=== PATIENT | female | born 1950 | race Caucasian/White ===

== ENCOUNTER 2017-06-13 15:50 | Day surgery (SDC) | payer OTHER ==
[~2017-06-13] VITALS: Ht 165.1 cm; Wt 88.2 kg
[2017-06-13 16:00] VITALS: BP 133/91; PULSE 101; RESP 19
[2017-06-13 16:13] VITALS: Ht 165.1 cm; Wt 88.2 kg
[2017-06-13] MEDS ORDERED: MIDAZOLAM 1 MG/ML 2 ML INJ ONE ×2 (16:16→16:17)
[2017-06-13] MEDS ORDERED: PROPOFOL 20 ML ONE (16:16)
[2017-06-13] MEDS ORDERED: LIDOCAINE 2% (SDV) 5 ML INJ ONE (16:16)
--- NOTE | 2017-06-13 16:54 | OPPN ---
Date/Time of Note Date/Time of Note DATE: 06/13/17 TIME: 16:52 Operative Report Preoperative Diagnosis Abdominal pain Chronic heartburn Chronic diarrhea Postoperative Diagnosis Hiatal hernia and gastroesophageal reflux disease Gastritis with erosions Small bowel biopsies were taken for histopathology Normal terminal ileum Random biopsies were taken to rule out microscopic colitis Internal hemorrhoids Operation/Procedure Performed Esophagogastroduodenoscopy and biopsy Colonoscopy and biopsy Surgeon see signature line assistant chief engineer None Anesthesia: MAC Estimated blood loss: none Transfusion Required none Specimen Small bowel biopsy Gastric mucosal biopsy Random colon biopsy Grafts/Implants none Complications none QASIM BAJWA MD Jun 13, 2017 16:54
[2017-06-13] MEDS ORDERED: OMEPRAZOLE PO (16:56)
[2017-06-13] MEDS ORDERED: PRAVASTATIN PO (16:56)
[2017-06-13] MEDS ORDERED: KLONOPIN PO (16:56)
[2017-06-13] MEDS ORDERED: COZAAR PO (16:56)
[2017-06-13 17:20] VITALS: BP 131/69; PULSE 87; RESP 18
--- NOTE | 2017-06-13 22:28 | GILP ---
DATE OF PROCEDURE: NAME OF PROCEDURES: 1. Esophagogastroduodenoscopy and biopsy. 2. Colonoscopy and biopsy. SURGEON: Qasim Willis MD PREOPERATIVE DIAGNOSES: 1. Abdominal pain. 2. Chronic heartburn. 3. Chronic diarrhea. POSTOPERATIVE DIAGNOSES: 1. Hiatal hernia and gastroesophageal reflux disease. 2. Gastritis with erosions. 3. Gastric mucosal biopsies were taken for Helicobacter pylori test. 4. Colonoscopy all the way to the cecum and into the terminal ileum. 5. Normal terminal ileum. 6. Random biopsies were taken to rule out microscopic colitis. 7. Internal hemorrhoids. INDICATION FOR THE PROCEDURE: Ms. Yina Javier is a 66-year-old female patient who had upper ab dominal pain and chronic heartburn, not responding to therapy. She also had chronic diarrhea. The procedures and possible complications were well explained to the patient, the patient understood and consented to the procedure. DESCRIPTION OF PROCEDURE: Under the influence of anesthesia, the gastroscope was carefully introduc ed into the esophagus and under direct vision, it was advanced to the stomach and through the pyloru s into the duodenal bulb and descending duodenum. FINDINGS: ESOPHAGUS: The patient had hiatal hernia and gastroesophageal reflux disease. STOMACH: The patient had gastritis with erosions. Gastric mucosal biopsies were taken for H. pylor i test. The small bowel was normal. Small bowel biopsies were taken for histopathology. The colonoscope was carefully introduced in the rectum and under direct vision, it was advanced all the way to the cecum and through the ileocecal valve into the terminal ileum. FINDINGS: The terminal ileum was normal. The colonic mucosa was normal. Random biopsies were take n to rule out microscopic colitis. The patient was noted to have internal hemorrhoids. She tolerated the procedures very well and there was no complication from the procedures. At the en d of the procedures, she was awake with stable vital signs and she was discharged home to the care o f her family. IMPRESSION: Please see postoperative diagnoses. PLAN: 1. Omeprazole 40 mg p.o. q.a.m. 2. Zantac 300 mg p.o. at bedtime. 3. Bentyl 10 mg p.o. t.i.d. p.r.n. for diarrhea. 4. Await histopathology reports. 5. Next screening colonoscopy in 10 years. Dictated By: QASIM PENG/JANICE Conf#: [id number] [facility]#: [id number]
== END 2017-06-13 18:22 | disposition home or self-care (01) ==
LOC: GIL 15:50
PROVIDERS: ATTEND Internal Medicine Gastroenterology
DX: R12 Heartburn (principal); K44.9 Diaphragmatic hernia without obstruction or gangrene; K21.9 Gastro-esophageal reflux disease without esophagitis; K29.70 Gastritis, unspecified, without bleeding; K64.8 Other hemorrhoids
CPT/HCPCS: 43239; 45380; 87081; 88305; 88313; J2250; Z7610

== ENCOUNTER 2018-10-02 06:26 | Day surgery (SDC) | payer OTHER ==
--- NOTE | 2018-10-01 13:07 | PREOPHP ---
DATE OF ADMISSION: 10/02/2018 HISTORY OF PRESENT ILLNESS: This 68-year-old patient is admitted for elective cataract surgery of th e left eye. The patient had previously had decreased vision in both eyes for the past 5 years' time and 2 months ago underwent cataract surgery of the right eye with excellent visual recovery. The pat ient's systemic history is positive for hypertension, sleep disorder, GERD and depression. CURRENT MEDICATIONS: Include: 1. Celexa. 2. Losartan. 3. Naproxen. 4. Pravastatin. 5. Flexeril. 6. Klonopin. 7. Prilosec. ALLERGIES: THERE ARE NO KNOWN ALLERGIES. PHYSICAL EXAMINATION: The visual acuity with best correction is 20/25 in the right eye and 20/80 in the left eye. Slit lamp examination reveals a posterior chamber intraocular lens in appropriate posi tion in the right eye and a moderate nuclear sclerotic and posterior subcapsular cataract in the left eye. Applanation tonometry is 21 mmHg. Examination of the retina is within normal limits. DIAGNOSIS: Nuclear sclerotic and posterior subcapsular cataract, left eye. PLAN: Cataract extraction with lens implant, left eye. The risks and alternatives to the surgery white ve been discussed with the patient as well as the hope for improvement of visual acuity leading to gr eater ability to perform activities of daily living. The patient understands this and agrees to proc eed with surgery. Dictated By: ЕЛЕНА CABALLERO/JANICE Conf#: [id number] DID#: [id number]
[~2018-10-02] VITALS: Ht 165.1 cm; Wt 87.9 kg
[2018-10-02] VITALS (7 sets, daily range): BP systolic 125–150; BP diastolic 65–81; PULSE 84–94; RESP 10–18; Ht 165.1 cm; Wt 87.9 kg
[~2018-10-02 06:26] MED LIST: CITA20TA11 PO; CYCL10TA7 PO; CYCLOPENTOLATE/PHENYLEPH 2 ML OPH LEFT EYE SCH; DICLOFENAC 0.1% 2.5 ML OPH LEFT EYE SCH; LOSA25TA12 PO; MOXIFLOXACIN 0.5% 3 ML OPH LEFT EYE SCH; OMEP20CA16 PO; PRAV40TA76 PO; SOD CHLORIDE 0.9% 1,000 ML IV SCH; TROPICAMIDE 1% 15 ML OPH LEFT EYE SCH; ZOLP5TAB PO
[2018-10-02] MEDS ORDERED: NAPR-688 PO (07:24)
[2018-10-02] MEDS ORDERED: CLON-429 PO (07:25)
[2018-10-02] MEDS ORDERED: EPHEDrine SULFATE 50 MG/5 ML SYG IV PRN (09:00)
[2018-10-02] MEDS ORDERED: DIPHENHYDRAMINE 50 MG INJ IV PRN (09:00)
[2018-10-02] MEDS ORDERED: OXYCODONE/ACETAMINOPHEN (5/325) TAB PO PRN (09:00)
[2018-10-02] MEDS ORDERED: hydrALAzine 20 MG INJ IV PRN (09:00)
[2018-10-02] MEDS ORDERED: FENTAnyl 50 MCG/ML VIAL IV PRN (09:00)
[2018-10-02] MEDS ORDERED: HYDROmorphONE 1 MG/5 ML IV SYRINGE IV PRN ×2 (09:00)
[2018-10-02] MEDS ORDERED: MEPERIDINE 25 MG INJ IV PRN (09:00)
[2018-10-02] MEDS ORDERED: ONDANSETRON 4 MG INJ IV PRN (09:00)
[2018-10-02] MEDS ORDERED: LABETALOL HCL 20MG INJ IV PRN (09:00)
--- NOTE | 2018-10-02 09:00 | PREAC ---
Date/Time of Note Date/Time of Note DATE: 10/02/18 TIME: 08:59 Anesthesia Eval and Record Evaluation Time Pre-Procedure Interview DATE: 10/02/18 TIME: 08:59 Age 68 Sex female NPO: 8 hrs Preoperative diagnosis left cataract Planned procedure left cataract extraction, intraocular lens implant Past Medical History Past Medical History: Includes Cardio: HTN, Dyslipidemia GI: GERD Psych: Depression, Anxiety Surgery & Anesthesia Issues No known issue Meds Anticoagulation: No Beta Gerda within 24 hr: No Reason Beta Gerda not given: Pt. not on B-Gerda Reported Medications Clonazepam* (Klonopin*) 0.5 Mg Tab, 0.25 MG PO DAILY PRN for ANXIETY, TAB 10/02/18 Naproxen* (Naproxen*) 500 Mg Tablet, 500 MG PO BID PRN for PAIN AND/OR INFLAMMATION, TAB 10/02/18 Omeprazole* (Omeprazole*) 20 Mg Capsule.dr, 20 MG PO DAILY, #30 CAP 08/07/18 Zolpidem Tartrate* (Ambien*) 5 Mg Tablet, 5 MG PO QHS PRN for INSOMNIA, #30 TAB 08/07/18 Cyclobenzaprine Hcl* (Cyclobenzaprine Hcl*) 10 Mg Tablet, 10 MG PO QHS PRN for MUSCLE SPASMS, #60 TAB 08/07/18 Losartan Potassium* (Losartan Potassium*) 25 Mg Tablet, 25 MG PO DAILY, TAB 08/07/18 Citalopram Hydrobromide* (Celexa*) 20 Mg Tablet, 20 MG PO DAILY, #30 TAB 08/07/18 Pravastatin Sodium* (Pravastatin Sodium*) 40 Mg Tablet, 40 MG PO HS, TAB 08/07/18 Current Medications Diclofenac Sodium (Voltaren 0.1%) 1 drop Q5 MIN X 3 LEFT EYE Last administered on 10/02/18at 07:29; Admin Dose 1 DROP; Start 10/02/18 at 06:00 Tropicamide (Mydriacyl 1%) 1 drop Q5 MIN X3 LEFT EYE Last administered on 10/02/18at 07:28; Admin Dose 1 DROP; Start 10/02/18 at 06:00 Moxifloxacin HCl (Vigamox) 1 drop Q5 MIN X 3 LEFT EYE Last administered on 10/02/18at 07:28; Admin Dose 1 DROP; Start 10/02/18 at 06:00 Cyclopentolate/ Phenylephrine (Cyclomydril Oph 2 ml) 1 drop Q5 MIN X 3 LEFT EYE Last administered on 10/02/18at 07:29; Admin Dose 1 DROP; Start 10/02/18 at 06:00 Sodium Chloride 1,000 ml @ 25 mls/hr Q24H IV Last administered on 10/02/18at 07:28; Admin Dose 25 MLS/HR; Start 10/02/18 at 06:00 Meds reviewed: Yes Allergies Coded Allergies: No Known Allergy (Unverified , 10/02/18) Allergies Reviewed: Yes Labs/Studies Labs Reviewed: Reviewed by anesthesiologist test: N/A Pre-procedure Exam Airway: Adequate mouth opening, Adequate thyromental dist Mallampati: Mallampati II Teeth: Normal Lung: Normal Heart: Normal ASA Physical Status ASA physical status: 2 Emergency: None Planned Anesthetic General/MAC: Mask Pre-operative Attestations Prior to commencing anesthesia and surgery, the patient was re-evaluated, there was verification of: *The patient's identity *The results of appropriate recent lab work and preoperative vital signs *The above evaluation not changing prior to induction *Anesthetic plan, risk benefits, alternative and complications discussed with patient/family; questions answered; patient/family understands, accepts and wishes to proceed. NIMCO BOB MD Oct 02, 2018 09:00
[2018-10-02] MEDS ORDERED: CARBACHOL 0.01% 1.5 ML OPH INJ ONE (09:34)
[2018-10-02] MEDS ORDERED: NA HYALURONATE/CHONDROITIN 0.5 ML SYG ONE (09:34)
[2018-10-02] MEDS ORDERED: CEFAZOLIN 1 GM INJ ONE (09:34)
[2018-10-02] MEDS ORDERED: LIDOCAINE 4% (MPF) 5 ML INJ ONE (09:34)
[2018-10-02] MEDS ORDERED: DEXAMETHASONE 4 MG/ML 1 ML INJ ONE (09:34)
[2018-10-02] MEDS ORDERED: FENTAnyl 50 MCG/ML VIAL ONE (09:48)
[2018-10-02] MEDS ORDERED: PROPOFOL 20 ML ONE (09:48)
[2018-10-02] MEDS ORDERED: MIDAZOLAM 1 MG/ML 2 ML INJ ONE (09:48)
--- NOTE | 2018-10-02 10:38 | SIPON ---
Date/Time of Note Date/Time of Note DATE: 10/02/18 TIME: 10:37 Operative Report Preoperative Diagnosis nuclear sclerotic & posterior subcapsular cataract os Postoperative Diagnosis same Operation/Procedure Performed cataract extraction with lens implant os Surgeon елена snyder life enrichment assistant none Anesthesia: MAC Estimated blood loss: none Transfusion Required none Specimen none Grafts/Implants posterior chamber lens implant Complications none ЕЛЕНА SNYDER MD Oct 02, 2018 10:38
--- NOTE | 2018-10-02 11:32 | OPR ---
DATE OF OPERATION: 10/02/2018 PREOPERATIVE DIAGNOSIS: Nuclear sclerotic and posterior subcapsular cataract, left eye. POSTOPERATIVE DIAGNOSIS: Nuclear sclerotic and posterior subcapsular cataract, left eye. OPERATION PERFORMED: Cataract extraction with lens implant, left eye. SURGEON: Елена Snyder M.D. ANESTHESIOLOGIST: Dr. Shi. ANESTHESIA: Local standby. PROCEDURE: The patient was brought to the operating room and placed on the table with an IV in place and the patient attached to an desk monitor. Oxygen was given via face mask. After some intravenous sedation was administered, local anesthesia was given using Xylocaine 2% with epinephrine, mixed with Marcaine 0.5%. This was given in a lid block and retrobulbar injection. The patient was then prepped and draped in the usual sterile manner. A wire lid speculum was inserted between the lids of the left eye. A Superblade was used to enter th e anterior chamber at the corneoscleral limbus at the 10:30 o'clock position. A separate incision wa s made using a 3.0-mm keratome which entered the corneoscleral junction at the 12 o'clock position. Through this 3-mm opening, an irrigating cystotome was introduced into the anterior chamber. The missy mber was filled with Viscoat and an anterior capsulotomy was performed. Balanced salt solution was t hen used for hydrodissection of the lens. A phacoemulsification handpiece was then brought into the field and introduced into the anterior chamber. The lens nucleus was emulsified using a deep groove and cracking the nucleus into quadrants. Following this, each quadrant was aspirated and emulsified at the pupillary margin. After this was completed, the irrigation/aspiration handpiece was brought to the field, introduced in to the posterior chamber, and the lens cortical material was removed. When this was completed, addit ional Viscoat was injected into the anterior and posterior chambers. Following removal of the lens nucleus, it was noted that there was a break in the posterior capsule, most likely due to sharp edges of a very brunescent nucleus as remnants were moving about in the post erior chamber during the phacoemulsification procedure. Some formed vitreous was present at the ante rior chamber wound and therefore, a limited anterior vitrectomy was performed. Following this, it wa s noted that there was no vitreous in the anterior chamber or at the lips of the wound and that there was sufficient capsular support. All lens cortical material was aspirated and then 18.0 diopter the posterior chamber intraocular lens ([employer] Model LI61AO) was inserted into the posterior chamber with the haptics placed anterior to the peripheral lens capsule. The lens centered well and remained stable. One 10-0 nylon suture was placed across the wound. Miostat was instilled to constrict the pupil. Pr ovisc was aspirated from the anterior chamber and then the suture was tied. The ends were cut short and the knot was buried. 0.5 mL of Ancef and 0.5 mL of dexamethasone were injected into the sub-Teno n space inferiorly. Speculum was removed. Ciprofloxacin drops placed on the eye, and the eye was pa tched. The patient then left the operating room in satisfactory condition. Dictated By: ЕЛЕНА CABALLERO/JANICE Conf#: [id number] DID#: [id number] CC: ЕЛЕНА SNYDER MD;*EndCC*
--- NOTE | 2018-10-02 14:22 | PAC ---
Date/Time of Note Date/Time of Note DATE: 10/02/18 TIME: 14:22 Post-Anesthesia Notes Post-Anesthesia Note Last documented vital signs Vital Signs Date Temp Pulse Resp B/P (MAP) Pulse Ox O2 O2 Flow FiO2 Time Delivery Rate 10/02/18 97.8 84 17 140/68 100 Room Air 11:27 (92) Activity: WNL Respiratory function: WNL Cardiovascular function: WNL Mental status: Baseline Pain reasonably controlled: Yes Hydration appropriate: Yes Nausea/Vomiting absent: Yes NIMCO BOB MD Oct 02, 2018 14:22
== END 2018-10-02 12:10 | disposition home or self-care (01) ==
LOC: SDS 06:26
PROVIDERS: ATTEND Ophthalmology
DX: H25.12 Age-related nuclear cataract, left eye (principal); I10 Essential (primary) hypertension; E78.5 Hyperlipidemia, unspecified
CPT/HCPCS: 66984; J0690; J1100; J2250; J3010; V2632